=== PATIENT | male | born 1965 | race African-American/Black ===

== ENCOUNTER 2024-07-14 14:57 | Emergency (ER) | payer MEDICAID, SELFPAY ==
[2024-07-14 15:57] VITALS: BP 139/72; PULSE 82; RESP 19; TEMP 36.9; O2SAT 97; BMI 24.0
--- NOTE | 2024-07-14 16:23 | XR_ITS ---
Examination: Lumbar spine 3 views TECHNIQUE: AP lateral, lateral lower lumbar spine 3 views Examination time: July 14, 2024 1831 hours INDICATIONS: Low back pain beginning 6 days ago. FINDINGS: Adequate alignment lumbar vertebral bodies No lumbar fracture Moderate lumbar spondylosis Moderate disc narrowing L1-L2, L2-L3, L3-L4 No spondylolisthesis IMPRESSION: Moderate lumbar spondylosis Moderate degenerative disc disease L1-L2, L2-L3, L3-L4
--- NOTE | 2024-07-14 16:25 | PD.EDBACK ---
ED Back Injury Pain RME/HPI General Chief Complaint: Back Pain/Injury Stated Complaint: lower back pain x 6days Time Seen by Provider: 07/14/24 15:23 Arrival date/time: 07/14/24 14:57 RME / HPI RME / HPI Narrative: 58-year-old male patient came in for evaluation regarding low back pain. Patient's been having low back pain for the last 5 days described as dull ache, severity moderate, worse with positional change. Patient denies any hematuria dysuria frequency fever or other complaints. Denies any fall. Denies any fever. Patient denies any bladder incontinence. Denies any bowel incontinence. Denies any saddle anesthesia. Patient history of pain in the past. Related Data Home Medications ?Medication ?Instructions ?Recorded ?Confirmed Alprazolam PO QPM ##0 10/02/12 Aspirin (Aspir 81) PO DAILY ##0 10/02/12 HYDROCODONE BITARTRATE/APAP (NORCO PO BID ##0 10/02/12 10) Meclizine Hcl (Antivert) PO TIDPRN ##0 10/02/12 Phenytoin Sodium Extended * 4 tab PO QPM ##0 10/02/12 (DILANTIN *) atorvastatin 80 mg tablet (Lipitor) PO DAILY ##0 10/02/12 carisoprodol 350 mg tablet (Soma) PO DAILY ##0 10/02/12 diphenhydramine HCl 50 mg capsule PO QPM ##0 10/02/12 docusate sodium 250 mg capsule PO BID ##0 10/02/12 (DOK) gabapentin 100 mg capsule PO BID ##0 10/02/12 hydroxyzine HCl 25 mg tablet PO TIDPRN ##0 10/02/12 loratadine 10 mg tablet (Alavert) PO DAILY ##0 10/02/12 sucralfate 1 gram tablet (Carafate) PO DAILY ##0 10/02/12 albuterol sulfate 90 mcg/actuation 8.5 gm IH ##0 10/12/12 aerosol inhaler (ProAir HFA) nitroglycerin 0.4 mg sublingual 0.4 mg SL PRN ##0 10/12/12 tablet (Nitrostat) zolpidem 10 mg tablet (Ambien) 10 mg PO HS ##0 10/12/12 phenobarbital 32.4 mg tablet 32.4 mg PO BID #20 tabs 02/24/13 Previous Rx's ?Medication ?Instructions ?Recorded Hydrocodone Bit/Acetaminophen 1 tab PO [id number] ##8 10/12/12 ([place] 10-325 Tablet) Amox Tr/Potassium Clavulanate 1 tab PO TID 10 days ##0 02/24/13 (Augmentin 500-125 Tablet) acetaminophen 300 mg-codeine 30 mg 1 tab PO TID PRN pain #20 tabs 07/14/24 tablet cyclobenzaprine 10 mg tablet 10 mg PO TID PRN muscle spasm #30 07/14/24 tabs Allergies Allergy/AdvReac Type Severity Reaction Status Date / Time ibuprofen Allergy Severe BLOOD IN Verified 07/14/24 14:59 URINE Review of Systems Review of Systems Narrative Review of Systems: Review of system reviewed and within normal limits except mentioned in HPI ED Exam Narrative Physical exam: VITAL SIGNS: Reviewed. GENERAL APPEARANCE: Alert and interactive, follows commands, no acute distress, HEAD AND FACE: Non-traumatic. ENT: PERRL, pink conjunctivitis, eyelid no trauma, Mucous membrane moist. NECK: Supple, nontender, no nuchal rigidity. CHEST: No tenderness, no crepitus, no paradoxical movement, no retractions. LUNGS: Clear, well ventilated, symmetric, no rales, no wheezing, no ronchi, no stridor, good breath sounds bilaterally. HEART: Regular rate, regular rhythm, no murmur, no gallops. ABDOMEN: Soft, positive bowel sounds, nondistended, no guarding, nontender, no rebound, no masses, RECTAL: Deferred. GENITAL: Deferred. NEUROLOGICAL: Gross motor function intact sensory function intact, Appropriate for age. MUSCULOSKELETAL: low back tenderness, with limited range of motion. EXTREMITIES: Nontender, full range of motion. SKIN: Color pink, dry, no rash, no lacerations, no abrasions, no contusions. LYMPHATICS: Deferred. Course Quality Measures none Orders Category Date Time Status XR lumbar spine 2-3V Stat Exams 07/14/24 16:23 Taken CBC [CBC] Stat Lab 07/14/24 16:45 Completed CMP [Comprehensive Metabolic Panel] Stat Lab 07/14/24 16:45 Completed UA, C/S IF [Urinalysis, C/S if Indicated] Stat Lab 07/14/24 18:00 Completed Morphine Inj Med 07/14/24 16:24 Discontinued 5 mg IM X1 ONE Ondansetron Odt [Zofran Odt] Med 07/14/24 16:24 Discontinued 4 mg PO X1 ONE Vital Signs Vital signs: Vital Signs Temperature 98.5 F 07/14/24 15:57 Pulse Rate 82 07/14/24 15:57 Respiratory Rate 19 07/14/24 15:57 Blood Pressure 139/72 H 07/14/24 15:57 Pulse Oximetry (%) 97 07/14/24 15:57 Oxygen Delivery Method Room Air 07/14/24 15:57 Back Pain / Injury [facility] Narrative [facility] Narrative:: 58-year-old male patient came in for evaluation regarding low back pain. Patient's been having low back pain for the last 5 days described as dull ache, severity moderate, worse with positional change. Patient denies any hematuria dysuria frequency fever or other complaints. Denies any fall. Denies any fever. Patient denies any bladder incontinence. Denies any bowel incontinence. Denies any saddle anesthesia. Patient history of pain in the past. Laboratory workup all came back unremarkable urinalysis no UTI. X-ray lumbar spine I did not notice any fracture or dislocation except for degenerative lumbar disc disease Patient was given morphine and Zofran with significant improvement of pain Patient was advised to see PCP and asked for referral to spine surgeon for primary management. Further imaging is not needed at this time, since patient is not showing any cauda equina syndrome. Patient data External records reviewed:: None Clinical information provided by:: patient Social determinants that could affect healthcare access:: none Patient has the following chronic illnesses:: History of chronic back pain in the past How is presenting disease/condition affected by chronic disease/condition?: exacerbated by Evaluation data The following diagnostics were reviewed and interpreted by me:: lab results and radiology exam(s) Lab and/or radiology exams considered but not ordered:: None Interpretation Summary: See results in MDM Medications / Prescriptions Medications or Prescriptions considered but not ordered:: None Medication administrations:: Medication Administration History Discontinued Medications Morphine Sulfate (Morphine Sulf Inj 10 Mg/Ml Vial) 5 mg IM X1 ONE Stop: 07/14/24 16:25 Last Admin: 07/14/24 17:54 Dose: 5 mg Documented By: ABBY Ondansetron HCl (Ondansetron Odt 4 Mg Tabrap) 4 mg PO X1 ONE; Protocol Stop: 07/14/24 16:25 Last Admin: 07/14/24 17:54 Dose: 4 mg Documented By: ABBY Parker and morphine Consultations Consultation(s) initiated? (list below): No Diagnosis Differential diagnosis back pain/injury: lumbar radiculopathy, sciatica and other (Acute on chronic low back pain) Most likely diagnosis given after review of the tests above:: Acute on chronic low back pain Admission Indicated Admission indicated?: not indicated Admission Request Was there a request for admission?: No Disposition Plan Disposition Plan: Discharge Discharge Attestation Discharge Attestation: The patient and all family members were given an opportunity to ask questions and understood the discharge instructions. Discharge instructions specifically effects, indications for sooner follow up or return to the emergency department, and the expected course of current diagnosis. Patient condition: Stable Discharge Plan Plan Patient Disposition: HOME (Self Care) Disposition Comment: Stable Prescriptions/Referrals Prescriptions/Med Rec: New acetaminophen-codeine 300-30 mg tablet 1 tab PO TID PRN (Reason: pain) Qty: 20 0RF cyclobenzaprine 10 mg tablet 10 mg PO TID PRN (Reason: muscle spasm) Qty: 30 0RF No Action Alprazolam 0.5 MG TAB.RAPDIS PO QPM Qty: 0 Aspirin (Aspir 81) 81 MG TABLET.DR PO DAILY Qty: 0 carisoprodol [Soma] 350 MG tablet PO DAILY Qty: 0 atorvastatin [Lipitor] 80 MG tablet PO DAILY Qty: 0 diphenhydramine HCl 50 MG capsule PO QPM Qty: 0 sucralfate [Carafate] 1 G tablet PO DAILY Qty: 0 hydroxyzine HCl 25 MG tablet PO TIDPRN Qty: 0 gabapentin 100 MG capsule PO BID Qty: 0 docusate sodium [DOK] 250 MG capsule PO BID Qty: 0 loratadine [Alavert] 10 MG tablet PO DAILY Qty: 0 HYDROCODONE BITARTRATE/APAP ([place] 10/325) 1 TAB tablet PO BID Qty: 0 Meclizine Hcl (Antivert) 25 MG tablet PO TIDPRN Qty: 0 Phenytoin Sodium Extended * (DILANTIN *) 100 MG capsule 4 tab PO QPM Qty: 0 nitroglycerin [Nitrostat] 0.4 MG tablet, sublingual 0.4 mg SL PRN Qty: 0 zolpidem [Ambien] 10 MG tablet 10 mg PO HS Qty: 0 albuterol sulfate [ProAir HFA] 8.5 GM HFA aerosol inhaler 8.5 gm IH Qty: 0 Hydrocodone Bit/Acetaminophen ([place] 10-325 Tablet) 1 TAB tablet 1 tab PO [id number] Qty: 8 0RF phenobarbital 32.4 MG tablet 32.4 mg PO BID Qty: 20 Amox Tr/Potassium Clavulanate (Augmentin 500-125 Tablet) 1 TAB tablet 1 tab PO TID 10 Days Qty: 0 0RF Referrals: No Primary/Family,Physician [Primary Care Provider] - In 1 week Problem List Clinical Impression: Acute on chronic low back pain Patient/Caregiver Discharge Instructions Discharge Activity: activity as tolerated Education Materials: Understanding the Pain Response Additional Instructions: Thank you for the opportunity for serving you today. You are stable for discharged . You are advised to: Follow-up with your PCP in 1 to 2 days Return to ED for worsening of symptoms Increase oral fluids Take medication as prescribed As your PCP to refer you to a physical therapy and spine surgeon Print Language: Occitan Stand Alone Forms: Cinthia Award Info., Patient Portal Info Letter PA/DB Supervising Physician CINTHIA/DB Supervising Physician: christel
[2024-07-14 16:52] LABS: Basophils % (Auto) 0 % (0-2.5); Eosinophils # (Auto) 0.1 Thou/mm3 (0.0-0.5); Eosinophils % (Auto) 1 % (0-10); Hematocrit 44.6 % (41.0-53.0); Hemoglobin 15.6 g/dL (13.5-16.0); Immature Granulocytes % (Auto) 1 % (0-0); Immature Granulocytes Auto 0.07 Thou/mm3 (0.00-0.00); Lymphocytes % (Auto) 21 % (10-50); Mean Corpuscular Volume 83 fL (80-100); Monocytes # (Auto) 1.2 Thou/mm3 (0.0-0.8); Monocytes % (Auto) 9 % (0-12); Neutrophils # (Auto) 9.7 Thou/mm3 (1.8-7.7); Neutrophils % (Auto) 68 % (37-80); Nucleated Red Blood Cell % 0 /100 WBC (0); Platelet Count 248 Thou/mm3 (140-440); RDW Standard Deviation 41.5 fL (35.1-43.9); Red Blood Count 5.38 Miln/mm3 (4.50-5.90); White Blood Count 14.2 Thou/mm3 (3.8-10.6)
[2024-07-14 17:24] LABS: Alanine Aminotransferase 7 U/L (10-49); Albumin, Serum 4.4 gm/dL (3.4-4.8); Albumin/Globulin Ratio 1.7 (1.2-2.2); Alkaline Phosphatase 90 U/L (46-116); Anion Gap 6 (7-16); Aspartate Amino Transferase 11 U/L (0-34); BUN/Creatinine Ratio 7 Ratio (12-20); Bilirubin,Total 0.4 mg/dL (0.3-1.2); Blood Urea Nitrogen 6 mg/dL (9-23); Calcium 9.5 mg/dL (8.3-10.6); Calcium (Corrected) 9.5 mg/dL (8.5-10.1); Carbon Dioxide 28.4 mMol/L (20.0-31.0); Chloride 103 mMol/L (98-107); Creatinine (Component) 0.9 mg/dL (0.6-1.3); Estimated Creatinine Clearance 84.4 mL/min (>60); Globulin 2.6 gm/dL (2.3-3.5); Glucose 86 mg/dL (74-106); Osmolality,Calculated 270 (275-295); Potassium 4.2 mMol/L (3.4-5.1); Sodium 137 mMol/L (136-145); eGFR > 60 See Note
[2024-07-14] MEDS: ONDANSETRON ODT 4 MG TABRAP PO (17:54)
[2024-07-14] MEDS: MORPHINE SULF INJ 10 MG/ML VIAL 5 MG IM (17:54)
[2024-07-14 18:13] LABS: Collection Type, Urine Clean Catch
[2024-07-14 18:18] LABS: Bilirubin,Urine Negative (Negative); Blood,Urine Negative (Negative); Clarity,Urine Clear (Clear/Hazy); Color,Urine Lt-Yellow (Lt Yel-Yel); Culture Indicated,Urine Not Indicated; Glucose, Urine Negative (Negative); Ketones,Urine Negative (Negative); Leukocyte Esterase,Urine Negative (Negative); Nitrite,Urine Negative (Negative); Protein,Urine Negative (Neg - Trace); RBC,Urine 2 /hpf (0-3); Specific Gravity,Urine 1.013 (1.001-1.035); Squamous Epithelial Cell,Urine 2 /hpf (0-5); Urobilinogen,Urine Negative mg/dL (0.0-1.0); WBC,Urine 2 /hpf (0-5)
== END 2024-07-14 19:45 | disposition home or self-care (01) ==
PROVIDERS: Nurse Practitioner Family; Emergency Provider Emergency Medicine
DX: G89.29 Other chronic pain (principal); M54.50 Low back pain, unspecified
CPT/HCPCS: 36415; 72100; 80053; 81001; 85025; 96372; 99283; J2270; Q0162

== ENCOUNTER 2024-10-08 12:10 | Emergency (ER) | payer MEDICAID, SELFPAY ==
[2024-10-08 12:21] VITALS: BP 164/89; PULSE 110; RESP 18; TEMP 37.1; O2SAT 97
--- NOTE | 2024-10-08 12:50 | XR_ITS ---
Examination: Wrist, left 3 views Technique: Wrist AP, oblique, lateral 3 views Date and time of exam: October 08, 2024 1254 hours INDICATIONS: Injury to the wrist today, wrist pain. FINDINGS: No acute fracture No dislocation No foreign body IMPRESSION: No acute fracture
--- NOTE | 2024-10-08 12:50 | XR_ITS ---
Examination: Hand, left 3 views Technique: Hand AP, oblique, lateral 3 views Date and time of exam: October 08, 2024 1254 hours INDICATIONS: Injury to the hand today with hand pain FINDINGS: No acute fracture No dislocation No foreign body IMPRESSION: No acute fracture
--- NOTE | 2024-10-08 12:50 | XR_ITS ---
Examination: CT brain head without contrast. 2-D sagittal coronal reconstructions Date and time of exam:October 08, 2024 1257 hours INDICATIONS: Ground-level fall this morning with injury to the head, head pain CTDI: vol (mGy):49.9 DLP: (mGycm):998 Technique: Multiple CT axial sections of the brain have been obtained, 5 mm slice thickness. Contrast has not been administered. 2-D sagittal, coronal reconstructions have been obtained Low dose protocols were performed. One or more of the following dose reduction techniques were used; automated exposure control, adjustment of the mA and/or KV according to patient size, use of iterative reconstruction technique. Findings: No significant ventricular enlargement. Intra-axial or extra-axial hemorrhage density is not seen. No mass effect or midline shift Basal cisterns are not remarkable. Fourth ventricle is midline. Stable 9 mm defect in the right temporal parietal bone compared to 02/24/2013 examination, clinical correlation advised Impression: Negative for acute hemorrhage, mass effect or midline shift
--- NOTE | 2024-10-08 12:50 | XR_ITS ---
Examination: CT maxillofacial, without intravenous contrast. 2-D sagittal reconstructions. 3-D reconstructions. Date and time of exam:October 08, 2024 1257 hours INDICATIONS: Ground-level fall this morning with injury to the face, facial pain CTDI: vol (mGy):15.4 DLP: (mGycm):256 Technique: Multiple axial images of maxillofacial region, 3.0 mm slice thickness. 2-D sagittal and coronal reconstructions. 3-D reconstructions. Low dose protocols were performed. One or more of the following dose reduction techniques were used; automated exposure control, adjustment of the mA and/or KV according to patient size, use of iterative reconstruction technique. Findings: Frontal bone frontal sinuses intact Orbital rims intact Significant left ethmoid and left maxillary sinusitis No acute nasal bone fracture No depression zygomatic arches Pterygoid plates maxilla and the mandible intact IMPRESSION: No acute facial fracture.
--- NOTE | 2024-10-08 12:50 | XR_ITS ---
Examination: CT cervical spine without contrast 2-D sagittal reconstructions 2-D coronal reconstructions 3-D reconstructions. Exam date and time:October 08, 2024 1257 hours INDICATIONS: Patient fell this morning with injury to the neck, neck pain CTDI:vol (mGy) 14.7 DLP: (mGycm) 352 Technique: Multiple 2 mm axial sections of the cervical spine have been obtained. The coronal and sagittal reconstructions have been obtained. 3-D reconstructions have been obtained. Low dose protocols were performed. One or more of the following dose reduction techniques were used; automated exposure control, adjustment of the mA and/or KV according to patient size, use of iterative reconstruction technique. Findings: Axial sections demonstrate intact base of the skull. C1 exhibit satisfactory relationship to the odontoid. No acute cervical vertebral body fracture seen. Alignment posterior spinous processes satisfactory. Pleural parenchymal disease at the apices Impression: No acute cervical fracture.
[2024-10-08 14:14] VITALS: BP 165/82; PULSE 74; RESP 16; TEMP 36.8; O2SAT 99
--- NOTE | 2024-10-08 14:22 | XR_ITS ---
Examination: Shoulder,left, 3 views Technique: Shoulder AP internal rotation, AP external rotation, Y view shoulder, 3 views Exam date and time :October 08, 2024 1437 hours INDICATIONS: Injury to the shoulder today, shoulder pain. FINDINGS: No shoulder fracture or dislocation. No AC joint separation IMPRESSION: No shoulder fracture or dislocation
--- NOTE | 2024-10-08 14:24 | XR_ITS ---
Examination: Left elbow 3 views Technique: Elbow AP, oblique, lateral 3 views Exam date and time: October 08, 2024 1437 hours INDICATIONS: Injury to the elbow today, elbow pain. FINDINGS: No fracture or dislocation Small posterior bony spur Impression: No fracture or dislocation.
--- NOTE | 2024-10-08 14:29 | PD.EDFALL ---
ED Fall Injury RME/HPI General Chief Complaint: Fall Stated Complaint: FELL INTO WALL HITTING R) SIDE; SEVERE PAIN Time Seen by Provider: 10/08/24 14:14 Source: patient Arrival date/time: 10/08/24 12:10 Limitations: no limitations RME / HPI RME / HPI Narrative: 59-year-old male is here today with his girlfriend. He states he had a ground-level, mechanical, fall this morning while he was out fishing at [employer] He states he was walking down the embankment toward the leg when he slid into a concrete wall. He reports having a transient loss of consciousness. He has a left arm pain that is diffuse. He has no chest pain or abdominal pain. He has no lower extremity pain. He has no open wounds. He does have swelling at the left eyebrow. Denies any vision changes or loss of vision. He has no dental trauma. He has no other acute complaints. Related Data Home Medications ?Medication ?Instructions ?Recorded ?Confirmed Alprazolam PO QPM ##0 10/02/12 Aspirin (Aspir 81) PO DAILY ##0 10/02/12 HYDROCODONE BITARTRATE/APAP (NORCO PO BID ##0 10/02/12 10/325) Meclizine Hcl (Antivert) PO TIDPRN ##0 10/02/12 Phenytoin Sodium Extended * 4 tab PO QPM ##0 10/02/12 (DILANTIN *) atorvastatin 80 mg tablet (Lipitor) PO DAILY ##0 10/02/12 carisoprodol 350 mg tablet (Soma) PO DAILY ##0 10/02/12 diphenhydramine HCl 50 mg capsule PO QPM ##0 10/02/12 docusate sodium 250 mg capsule PO BID ##0 10/02/12 (DOK) gabapentin 100 mg capsule PO BID ##0 10/02/12 hydroxyzine HCl 25 mg tablet PO TIDPRN ##0 10/02/12 loratadine 10 mg tablet (Alavert) PO DAILY ##0 10/02/12 sucralfate 1 gram tablet (Carafate) PO DAILY ##0 10/02/12 albuterol sulfate 90 mcg/actuation 8.5 gm IH ##0 10/12/12 aerosol inhaler (ProAir HFA) nitroglycerin 0.4 mg sublingual 0.4 mg SL PRN ##0 10/12/12 tablet (Nitrostat) zolpidem 10 mg tablet (Ambien) 10 mg PO HS ##0 10/12/12 phenobarbital 32.4 mg tablet 32.4 mg PO BID #20 tabs 02/24/13 Previous Rx's ?Medication ?Instructions ?Recorded Hydrocodone Bit/Acetaminophen 1 tab PO [id number] ##8 10/12/12 ([place] 10-325 Tablet) Amox Tr/Potassium Clavulanate 1 tab PO TID 10 days ##0 02/24/13 (Augmentin 500-125 Tablet) acetaminophen 300 mg-codeine 30 mg 1 tab PO TID PRN pain #20 tabs 07/14/24 tablet cyclobenzaprine 10 mg tablet 10 mg PO TID PRN muscle spasm #30 07/14/24 tabs methocarbamol 750 mg tablet 750 mg PO Q8H #20 tabs 10/08/24 Allergies Allergy/AdvReac Type Severity Reaction Status Date / Time ibuprofen Allergy Severe BLOOD IN Verified 10/08/24 12:15 URINE Review of Systems Review of Systems Systems Reviewed: All systems reviewed, normal except as documented ED Exam General Limitations: Present no limitations Head Head exam: Present other (There is edema superficial to the left eyebrow. There is no skull depression. No Rodrigez sign. No hematotympanum.) Eye Eye exam: Present normal appearance and PERRL Neck Neck exam: Present normal inspection, full ROM and other (No midline tenderness or vertebral step-off) Chest Chest inspection: Present normal inspection and symmetric chest wall rise; Absent tenderness Respiratory Respiratory exam: Present normal lung sounds bilaterally Cardiovascular Cardiovascular exam: Present regular rate Abdominal Exam Abdominal exam: Present soft; Absent distention or tenderness Extremities Exam Extremities exam: Present normal inspection, full ROM and tenderness Back Exam Back exam: Present normal inspection and full ROM; Absent tenderness Course Quality Measures none Orders Category Date Time Status Cold Pack Treatment NOW Care 10/08/24 14:[address] cervical spine wo con Stat Exams 10/08/24 12:[address] facial bones wo con Stat Exams 10/08/24 12:[address] head/brain wo con Stat Exams 10/08/24 12:50 Completed XR elbow comp LT min 3V Stat Exams 10/08/24 14:24 Completed XR hand comp LT min 3V Stat Exams 10/08/24 12:50 Completed XR shoulder LT min 2V Stat Exams 10/08/24 14:22 Completed XR wrist comp LT min 3V Stat Exams 10/08/24 12:50 Completed HYDROcodone*/APAP 5/325 [[place] 5/325] Med 10/08/24 14:27 Discontinued 1 tab PO X1 ONE methocarbamoL [Robaxin] Med 10/08/24 14:27 Discontinued 500 mg PO X1 ONE Vital Signs Vital signs: Vital Signs Temperature 98.8 F 10/08/24 12:21 Pulse Rate 110 H 10/08/24 12:21 Respiratory Rate 18 10/08/24 12:21 Blood Pressure 164/89 H 10/08/24 12:21 Pulse Oximetry (%) 97 10/08/24 12:21 Oxygen Delivery Method Room Air 10/08/24 12:21 Fall MDM Narrative MDM Narrative:: 59-year-old male who had a mechanical fall today and struck his face and arm. His work appears essentially unremarkable for any acute intracranial injury or osseous injury. Skin is intact. He does have mild edema at the left eyebrow but there is no open wounds. He has no dental injury. Patient was given therapies here and reports symptomatic improvement. Patient will be discharged with a prescription of Robaxin. He will use Tylenol as needed. He is advised to follow-up with his primary care provider within the next 1 to 2 weeks for recheck. Return anytime for any worsening or emergent changes. Patient data External records reviewed:: Other (specify) Clinical information provided by:: patient and spouse Social determinants that could affect healthcare access:: none Patient has the following chronic illnesses:: n/a How is presenting disease/condition affected by chronic disease/condition?: uneffected by Evaluation data The following diagnostics were reviewed and interpreted by me:: radiology exam(s) Lab and/or radiology exams considered but not ordered:: n/a Interpretation Summary: No intercranial abnormality. No acute osseous injury Medications / Prescriptions Medications or Prescriptions considered but not ordered:: n/a Medication administrations:: Medication Administration History Discontinued Medications Hydrocodone Bitart/Acetaminophen (Hydrocodone/Apap 5/325 Tablet) 1 tab PO X1 ONE Stop: 10/08/24 14:28 Last Admin: 10/08/24 14:57 Dose: 1 tab Documented By: STACI Methocarbamol (Methocarbamol 500 Mg Tablet) 500 mg PO X1 ONE Stop: 10/08/24 14:28 Last Admin: 10/08/24 14:58 Dose: 500 mg Documented By: STACI see above Consultations Consultation(s) initiated? (list below): No Diagnosis Fall Differential Diagnosis: dislocation of shoulder region, fracture of wrist and compression fracture Most likely diagnosis given after review of the tests above:: Contusion, possible muscle sprain Admission Indicated Admission indicated?: not indicated Admission Request Was there a request for admission?: No Disposition Plan Disposition Plan: Discharge Discharge Attestation Discharge Attestation: The patient and all family members were given an opportunity to ask questions and understood the discharge instructions. Discharge instructions specifically effects, indications for sooner follow up or return to the emergency department, and the expected course of current diagnosis. Patient condition: Stable Discharge Plan Plan Patient Disposition: HOME (Self Care) Patient condition on transfer: Stable Prescriptions/Referrals Prescriptions/Med Rec: New methocarbamol 750 mg tablet 750 mg PO Q8H Qty: 20 0RF No Action Alprazolam 0.5 MG TAB.RAPDIS PO QPM Qty: 0 Aspirin (Aspir 81) 81 MG TABLET.DR PO DAILY Qty: 0 carisoprodol [Soma] 350 MG tablet PO DAILY Qty: 0 atorvastatin [Lipitor] 80 MG tablet PO DAILY Qty: 0 diphenhydramine HCl 50 MG capsule PO QPM Qty: 0 sucralfate [Carafate] 1 G tablet PO DAILY Qty: 0 hydroxyzine HCl 25 MG tablet PO TIDPRN Qty: 0 gabapentin 100 MG capsule PO BID Qty: 0 docusate sodium [DOK] 250 MG capsule PO BID Qty: 0 loratadine [Alavert] 10 MG tablet PO DAILY Qty: 0 HYDROCODONE BITARTRATE/APAP (NORCO 10/325) 1 TAB tablet PO BID Qty: 0 Meclizine Hcl (Antivert) 25 MG tablet PO TIDPRN Qty: 0 Phenytoin Sodium Extended * (DILANTIN *) 100 MG capsule 4 tab PO QPM Qty: 0 nitroglycerin [Nitrostat] 0.4 MG tablet, sublingual 0.4 mg SL PRN Qty: 0 zolpidem [Ambien] 10 MG tablet 10 mg PO HS Qty: 0 albuterol sulfate [ProAir HFA] 8.5 GM HFA aerosol inhaler 8.5 gm IH Qty: 0 Hydrocodone Bit/Acetaminophen ([place] 10-325 Tablet) 1 TAB tablet 1 tab PO [id number] Qty: 8 0RF phenobarbital 32.4 MG tablet 32.4 mg PO BID Qty: 20 Amox Tr/Potassium Clavulanate (Augmentin 500-125 Tablet) 1 TAB tablet 1 tab PO TID 10 Days Qty: 0 0RF acetaminophen-codeine 300-30 mg tablet 1 tab PO TID PRN (Reason: pain) Qty: 20 0RF cyclobenzaprine 10 mg tablet 10 mg PO TID PRN (Reason: muscle spasm) Qty: 30 0RF Referrals: No Primary/Family,Physician [Primary Care Provider] - In 1 week Problem List Clinical Impression: Contusion of face Patient/Caregiver Discharge Instructions Education Materials: Bruises (Contusions), ED Facial Contusion Additional Instructions: Use Tylenol for comfort. Prescription for muscle laxer has been sent to your pharmacy. Follow-up with your primary clinic as needed. Return at anytime for worsening or emergent changes. Print Language: Mohawk Stand Alone Forms: Cinthia Award Info., Patient Portal Info Letter
[2024-10-08] MEDS: HYDROcodone/APAP 5/325 TABLET 1 TAB PO (14:57)
[2024-10-08] MEDS: methocarbamoL 500 MG TABLET PO (14:58)
[2024-10-08 15:41] VITALS: BP 132/68; PULSE 67; RESP 18; TEMP 36.8; O2SAT 98
== END 2024-10-08 15:42 | disposition home or self-care (01) ==
PROVIDERS: Emergency Provider Family Medicine
DX: S00.83XA Contusion of other part of head, initial encounter (principal); W22.01XA Walked into wall, initial encounter; M79.642 Pain in left hand; M25.532 Pain in left wrist; M54.2 Cervicalgia; J32.0 Chronic maxillary sinusitis; M25.512 Pain in left shoulder; M25.522 Pain in left elbow
CPT/HCPCS: 70450; 70486; 72125; 73030; 73080; 73110; 73130; 99284; A9270